=== PATIENT | male | born 1940 | race Caucasian/White ===

== ENCOUNTER 2016-12-08 05:24 | Emergency (ER) | payer MEDICARE, OTHER ==
[2016-12-08] MEDS ORDERED: DEXTROSE 50% ABBOJECT 25 GM/50 ML SYRINGE ONE (05:59)
[2016-12-08] MEDS ORDERED: DEXTROSE 50% ABBOJECT 25 GM/50 ML SYRINGE IVP STA (05:59)
== END 2016-12-08 07:03 | disposition short-term general hospital (02) ==
DX: I97.89 Other postprocedural complications and disorders of the circulatory system, not elsewhere classified (principal); R60.1 Generalized edema; Y83.8 Other surgical procedures as the cause of abnormal reaction of the patient, or of later complication, without mention of misadventure at the time of the procedure; Y92.019 Unspecified place in single-family (private) house as the place of occurrence of the external cause; I10 Essential (primary) hypertension; E78.00 Pure hypercholesterolemia, unspecified; G25.81 Restless legs syndrome; E10.9 Type 1 diabetes mellitus without complications; Z79.4 Long term (current) use of insulin